=== PATIENT | female | born 1985 | race Caucasian/White ===

== ENCOUNTER 2020-04-01 19:22 | Emergency (ER) | payer BC ==
[~2020-04-01] VITALS: Ht 170.2 cm; Wt 97.1 kg
[2020-04-01 19:27] VITALS: BP 132/72
--- NOTE | 2020-04-01 19:34 | NUR ---
PATIENT AMBUALTED TO RESTROOM TO COLLECT UA.
--- NOTE | 2020-04-01 19:39 | NUR ---
PATIENT AMBUALTED TO BED 6 WITH STEADY GAIT.
--- NOTE | 2020-04-01 19:43 | NUR ---
34 Y/O FEMALE BIB SELF FOR C/O LOWER ABDOMNIAL PAIN X 1 DAY S/P "EATING SOMETHING." PER PATIENT HAS N/V/D. PT STATES 10/10 CONSTANT CRAMPING PAIN. RX: ZOFRAN 4MG [id number] AGO MEDHX: UTERINE CANCER, DM, HYSTERECTOMY NKA
--- NOTE | 2020-04-01 19:44 | NUR ---
Note ge in [facility] - 04/01/20 at 2020 by [email or web address] R UPPER CHEST DIALYSIS CATHETER NOTED.
--- NOTE | 2020-04-01 19:44 | NUR ---
R UPPER CHEST DIALYSIS CATHETER NOTED.
--- NOTE | 2020-04-01 19:49 | NUR ---
ERMD AT BEDSIDE EVALUATING PT
--- NOTE | 2020-04-01 19:50 | NUR ---
LAB AT BEDSIDE
[2020-04-01] MEDS ORDERED: KETOROLAC 15 MG/ML VIAL IVP ONE (19:55)
[2020-04-01] MEDS ORDERED: ONDANSETRON 4 MG/2 ML VIAL IVP ONE (19:55)
[2020-04-01] MEDS ORDERED: NACL 0.9% 1,000 ML IV ONE ×2 (19:55→20:50)
[2020-04-01 20:10] LABS: HEMATOCRIT 42.3 % (36-48); HEMOGLOBIN 14.3 g/dL (12.0-16.0); MEAN CORPUSCULAR HEMOGLOBIN 30 pg (27-31); MEAN CORPUSCULAR HGB CONC 34 g/dL (33-37); MEAN CORPUSCULAR VOLUME 87.2 fL (80-94); PLATELET COUNT (AUTO) 283 K/uL (140-450); RED BLOOD CELL COUNT(AUTO) 4.85 MIL/uL (4.20-5.40); RED CELL DISTRIBUTION WIDTH 13.7 % (11.6-13.7)
[2020-04-01 20:19] LABS: APPEARANCE,URINE CLEAR (CLEAR); BILIRUBIN,URINE NEGATIVE (NEGATIVE); BLOOD, URINE 1+ (NEGATIVE); COLOR,URINE YELLOW (YELLOW); LEUKOCYTE ESTERASE ,URINE NEGATIVE (NEGATIVE); NITRITE, URINE NEGATIVE (NEGATIVE); UGLUCOSE NEGATIVE (NEGATIVE)
[2020-04-01 20:29] LABS: ALBUMIN 3.8 g/dL (3.4-5.0); ANION GAP 11.7 (8-16); CARBON DIOXIDE 27.9 mmol/L (21-32); CREATININE 0.9 mg/dL (0.6-1.3); POTASSIUM 4.6 mmol/L (3.5-5.1); TOTAL BILIRUBIN 0.6 mg/dL (0.0-1.0)
[2020-04-01 20:31] LABS: LYMPHOCYTES % (MANUAL) 13 % (20-46); MONOCYTES % (MANUAL) 1 % (5-12)
[2020-04-01 20:36] LABS: WBC,URINE 0-5 /HPF (0-5)
[2020-04-01] MEDS ORDERED: INSULIN REGULAR, HUMAN 100 UNIT/ML VIAL SUBQ ONE (20:50)
[2020-04-01] MEDS ORDERED: ACETAMINOPHEN EXTRA STRENGTH 500 MG TAB PO ONE (21:40)
--- NOTE | 2020-04-01 22:54 | NUR ---
ACCU CHECK 257
[2020-04-01 23:00] VITALS: BP 132/72
--- NOTE | 2020-04-01 23:00 | NUR ---
Patient discharged with v/s stable. Written and verbal after care instructions given and explained. Patient alert, oriented and verbalized understanding of instructions. Ambulatory with steady gait. All questions addressed prior to discharge. ID band removed. Patient advised to follow up with PMD. Rx of ZOFRAN AND LOPERAMIDE HYDROCHLORIDE given. Patient educated on indication of medication including possible reaction and side effects. Opportunity to ask questions provided and answered.
== END 2020-04-01 23:00 | disposition home or self-care (01) ==
LOC: MED 19:22
DX: R11.2 Nausea with vomiting, unspecified (principal); E11.9 Type 2 diabetes mellitus without complications; Z87.448 Personal history of other diseases of urinary system; Z90.49 Acquired absence of other specified parts of digestive tract; Z85.42 Personal history of malignant neoplasm of other parts of uterus
CPT/HCPCS: 36415; 80053; 81001; 83690; 85025; 96361; 96372; 96374; 99284; J1815; J1885; J7060

== ENCOUNTER 2021-03-28 07:00 | Emergency (ER) | payer BC ==
[~2021-03-28] VITALS: Ht 167.6 cm; Wt 102.1 kg
[2021-03-28 07:05] VITALS: BP 144/91
--- NOTE | 2021-03-28 07:08 | NUR ---
PT TAKEN TO [facility]
--- NOTE | 2021-03-28 07:10 | NUR ---
SEEN AND EXAMINED BY DHARMESH
[2021-03-28] MEDS ORDERED: KETOROLAC 60 MG/2 ML VIAL IM ONE (07:20)
[2021-03-28] MEDS ORDERED: METOCLOPRAMIDE 10 MG/2 ML INJ VIAL IM ONE (07:20)
--- NOTE | 2021-03-28 07:20 | NUR ---
35 Y/O FEMALE C/O HEADACHE X3DAYS DESCRIBES THROBBING NON-RADIATING. PT STATES +N/V, DENIES FEVER/CHILLS. PMH: HTN, DM, UTERINE CANCER NKA
[2021-03-28] MEDS ORDERED: METO-485 PO (07:56)
[2021-03-28 08:00] VITALS: BP 138/90
--- NOTE | 2021-03-28 08:00 | NUR ---
Patient discharged with v/s stable. Written and verbal after care instructions given and explained. Patient alert, oriented and verbalized understanding of instructions. Ambulatory with steady gait. All questions addressed prior to discharge. ID band removed. Patient advised to follow up with PMD. Rx of REGLAN given. Patient educated on indication of medication including possible reaction and side effects. Opportunity to ask questions provided and answered.
== END 2021-03-28 08:00 | disposition home or self-care (01) ==
LOC: MED 07:00
DX: R51.9 Headache, unspecified (principal); E11.9 Type 2 diabetes mellitus without complications; Z85.42 Personal history of malignant neoplasm of other parts of uterus; Z79.899 Other long term (current) drug therapy; Z90.710 Acquired absence of both cervix and uterus
CPT/HCPCS: 96372; 99284; J1885; J2765